=== PATIENT | female | born 1950 | race Caucasian/White ===

== ENCOUNTER 2018-05-21 12:42 | Inpatient (IN) ==
[2018-05-21] MEDS ORDERED: ONDANSETRON 4 MG/2 ML VIAL IV PRN (13:07)
[2018-05-21] MEDS ORDERED: DEXTROSE 50% 25 GM/50 ML SYRINGE IV PRN (13:07)
[2018-05-21] MEDS ORDERED: MAGNESIUM HYDROXIDE SUSP 30 ML UDCUP PO PRN (13:07)
[2018-05-21] MEDS ORDERED: GLUCAGON 1 MG VIAL IM PRN (13:07)
[2018-05-21] MEDS ORDERED: MORPHINE 4 MG/1 ML VIAL IV PRN (13:07)
[2018-05-21] MEDS ORDERED: ACETAMINOPHEN 325 MG TABLET PO PRN (13:07)
[2018-05-21] MEDS ORDERED: NITROGLYCERIN 2% OINT 1 INCH/GM PACK TOP SCH (13:30)
[2018-05-21] MEDS ORDERED: ASPIRIN EC 325 MG TABLET PO SCH (13:30)
[2018-05-21 14:14] LABS: Basophils # 0.1 10*3/uL (0.0-0.2); Basophils % 0.6 % (0.0-0.8); Eosinophils # 0.2 10*3/uL (0.0-0.87); Eosinophils % 2.3 % (0.00-10.9); Hematocrit 38.6 VOL% (35.7-47.0); Hemoglobin 11.9 GM/DL (12.0-16.0); Immature Granulocytes % 0.4 %; Immature Granulocytes Absolute 0.04 #; Lymphocytes # 2.4 10*3/uL (1.4-4.0); Lymphocytes % 25.4 % (21.3-54.2); Mean Corpuscular HGB Conc 30.8 GM/DL (32-36); Mean Corpuscular Hemoglobin 29 PG (27-34); Mean Corpuscular Volume 95.3 FL (87-102); Mean Platelet Volume 10.4 FL (9.6-12.0); Monocytes # 0.5 10*3/uL (0.11-0.8); Monocytes % 5.7 % (1.7-12.7); Neutrophils # 6.2 10*3/uL (1.4-7.4); Neutrophils % 65.6 % (38.7-73.9); Platelet Count 359 T/CUMM (130-400); Red Blood Count 4.05 MC/CUMM (3.8-5.5); Red Cell Distribution Width 12.5 % (9.3-17.3); White Blood Count 9.5 T/CUMM (4-12)
[2018-05-21 14:38] LABS: Alanine Aminotransferase 25 U/L (13-56); Albumin 3.7 G/DL (3.4-5.0); Alkaline Phosphatase 100 U/L (45-117); Aspartate Amino Transferase 11 U/L (0-37); Bilirubin,Total < 0.39 MG/DL (0.2-1.0); Blood Urea Nitrogen 31 MG/DL (7-18); Calcium 9.5 MG/DL (8.5-10.1); Glucose 169 MG/DL (74-106); Osmolality,Calculated 283.8 MOS/KG (273-304); Potassium 4.5 MMOL/L (3.5-5.1); Sodium 137 MMOL/L (136-145); Total Protein 8.3 G/DL (6.4-8.3)
[2018-05-21] MEDS ORDERED: ENOXAPARIN 100 MG/ML SYRINGE SUBCUT ONE (15:33)
[2018-05-21] MEDS ORDERED: MAGNESIUM SULF RIDER 2 GM in PREMIX 1 EACH IV PRN (15:40)
[2018-05-21] MEDS ORDERED: POTASSIUM CHLORIDE RIDER 10 MEQ in PREMIX 1 EACH IV PRN (15:40)
[2018-05-21] MEDS: SODIUM CHLORIDE 0.9% 1,000 ML IV SCH (15:51)
[2018-05-21] MEDS: PANTOPRAZOLE 40 MG TABLET PO SCH (16:06)
[2018-05-21] MEDS: LISINOPRIL 20 MG TABLET PO SCH ×2 (16:07→21:37)
[2018-05-21] MEDS: METOPROLOL TARTRATE 50 MG TABLET PO SCH ×2 (16:12→21:36)
[2018-05-21] MEDS: ASPIRIN EC 81 MG TABLET PO SCH (17:38)
[2018-05-21 17:40] LABS: Troponin I 0.299 NG/ML (0.00-0.045)
[2018-05-21] MEDS: INSULIN REGULAR 100 UNIT/ML SUBCUT SCH ×2 (17:44→22:21)
[2018-05-21 18:00] LABS: Apearance,Urine CLEAR (Clear); Bilirubin,Urine Negative (Negative); Blood, Urine Negative (Negative); Glucose,Urine (UA) Negative (Negative); Ketones,Urine Negative (Negative); Nitrite,Urine Negative (Negative); Protein,Urine Negative; RBC,Urine <1 /HPF (0-4); Urine Color Straw (Yellow); Urine Specific Gravity 1.006 (1.001-1.035); Urine Urobilinogen < 2.0 EU/DL (0.2-1.0); WBC,Urine 1 /HPF (0-6)
[2018-05-21] MEDS ORDERED: ENOXAPARIN 40 MG/0.4 ML SYRINGE SUBCUT SCH (21:00)
[2018-05-21] MEDS: ROSUVASTATIN 20 MG TABLET PO SCH (21:36)
[2018-05-21] MEDS: DOCUSATE SODIUM 100 MG CAPSULE PO SCH (21:36)
[2018-05-21] MEDS: NITROGLYCERIN 2% OINT 1 INCH/GM PACK TOP SCH (22:34)
[2018-05-21 23:26] LABS: Troponin I 0.293 NG/ML (0.00-0.045)
[2018-05-22] MEDS ORDERED: ENOXAPARIN 100 MG/ML SYRINGE SUBCUT ONE (03:30)
[2018-05-22 04:58] LABS: Basophils # 0.1 10*3/uL (0.0-0.2); Basophils % 0.9 % (0.0-0.8); Eosinophils # 0.3 10*3/uL (0.0-0.87); Eosinophils % 4.4 % (0.00-10.9); Hemoglobin 10.8 GM/DL (12.0-16.0); Immature Granulocytes % 0.3 %; Immature Granulocytes Absolute 0.02 #; Lymphocytes # 2.8 10*3/uL (1.4-4.0); Lymphocytes % 39.8 % (21.3-54.2); Mean Corpuscular HGB Conc 31.8 GM/DL (32-36); Mean Corpuscular Hemoglobin 30 PG (27-34); Mean Corpuscular Volume 93.2 FL (87-102); Mean Platelet Volume 10.7 FL (9.6-12.0); Monocytes # 0.5 10*3/uL (0.11-0.8); Monocytes % 7.1 % (1.7-12.7); Neutrophils # 3.3 10*3/uL (1.4-7.4); Neutrophils % 47.5 % (38.7-73.9); Platelet Count 276 T/CUMM (130-400); Red Blood Count 3.65 MC/CUMM (3.8-5.5); Red Cell Distribution Width 12.4 % (9.3-17.3)
[2018-05-22 05:14] LABS: Calcium 8.9 MG/DL (8.5-10.1); Osmolality,Calculated 292.1 MOS/KG (273-304); Potassium 4.7 MMOL/L (3.5-5.1)
[2018-05-22 05:17] LABS: Calcium 8.8 MG/DL (8.5-10.1); Osmolality,Calculated 292.1 MOS/KG (273-304); Potassium 4.7 MMOL/L (3.5-5.1); Risk Ratio 8.15; VLDL CHOLESTEROL 85.8 MG/DL
[2018-05-22] MEDS: SODIUM CHLORIDE 0.9% 1,000 ML IV SCH (06:38)
[2018-05-22] MEDS: LISINOPRIL 20 MG TABLET PO SCH ×2 (08:39→22:08)
[2018-05-22] MEDS: METOPROLOL TARTRATE 50 MG TABLET PO SCH ×2 (08:39→22:07)
[2018-05-22] MEDS: INSULIN REGULAR 100 UNIT/ML SUBCUT SCH ×4 (08:40→22:32)
[2018-05-22] MEDS: PANTOPRAZOLE 40 MG TABLET PO SCH (08:40)
[2018-05-22] MEDS: NITROGLYCERIN 2% OINT 1 INCH/GM PACK TOP SCH ×2 (08:40→22:15)
[2018-05-22] MEDS: GLIMEPIRIDE 2 MG TABLET PO SCH (08:40)
[2018-05-22] MEDS: ASPIRIN EC 81 MG TABLET PO SCH (08:40)
[2018-05-22] MEDS: DOCUSATE SODIUM 100 MG CAPSULE PO SCH ×2 (10:02→22:12)
[2018-05-22] MEDS ORDERED: HEPARIN/NACL 0.9% 2 UNITS/ML 1,000 ML IV ONE (11:32)
[2018-05-22] MEDS ORDERED: LIDOCAINE 1%/EPI INJ 20 ML VIAL ONE (11:32)
[2018-05-22] MEDS ORDERED: diphenhydrAMINE CAP 25 MG CAPSULE PO ONE (12:00)
[2018-05-22] MEDS ORDERED: DIAZEPAM 5 MG TABLET PO ONE (12:00)
[2018-05-22] MEDS ORDERED: fentaNYL 100 MCG/2 ML VIAL ONE (12:18)
[2018-05-22] MEDS ORDERED: MIDAZOLAM 2 MG/2 ML VIAL ONE (12:18)
[2018-05-22] MEDS ORDERED: SODIUM CHLORIDE 0.9% 1,000 ML IV SCH (16:30)
[2018-05-22] MEDS: CHLORHEXIDINE 4% SOLN 118 ML BOTTLE TOP SCH (20:22)
[2018-05-22] MEDS ORDERED: INSULIN GLARGINE 100 UNIT/ML SUBCUT SCH (21:30)
[2018-05-22] MEDS: ROSUVASTATIN 20 MG TABLET PO SCH (22:08)
[2018-05-22] MEDS: FENOFIBRATE 160 MG TABLET PO SCH (22:08)
[2018-05-22] MEDS: CHLORHEXIDINE 0.12% ORAL RINSE 60 ML BOTTLE SWISH/SPIT SCH (22:32)
[2018-05-23] MEDS ORDERED: CEFUROXIME INJ 1,500 MG in SODIUM CHLORIDE 0.9% 100 ML IV ONE (00:01)
[2018-05-23 04:53] LABS: Basophils # 0.1 10*3/uL (0.0-0.2); Basophils % 0.7 % (0.0-0.8); Eosinophils # 0.2 10*3/uL (0.0-0.87); Eosinophils % 3.3 % (0.00-10.9); Hematocrit 32.4 VOL% (35.7-47.0); Hemoglobin 10.2 GM/DL (12.0-16.0); Immature Granulocytes % 0.6 %; Immature Granulocytes Absolute 0.04 #; Lymphocytes # 1.7 10*3/uL (1.4-4.0); Mean Corpuscular HGB Conc 31.5 GM/DL (32-36); Mean Corpuscular Hemoglobin 29 PG (27-34); Mean Corpuscular Volume 93.1 FL (87-102); Mean Platelet Volume 10.5 FL (9.6-12.0); Monocytes # 0.5 10*3/uL (0.11-0.8); Monocytes % 6.9 % (1.7-12.7); Neutrophils # 4.4 10*3/uL (1.4-7.4); Neutrophils % 63.5 % (38.7-73.9); Platelet Count 274 T/CUMM (130-400); Red Blood Count 3.48 MC/CUMM (3.8-5.5); Red Cell Distribution Width 12.4 % (9.3-17.3)
[2018-05-23 04:59] LABS: Calcium 8.8 MG/DL (8.5-10.1); Osmolality,Calculated 289.4 MOS/KG (273-304); Potassium 4.5 MMOL/L (3.5-5.1)
[2018-05-23] MEDS ORDERED: VANCOMYCIN INJ 1,000 MG in SODIUM CHLORIDE 0.9% 250 ML IV ONE (05:00)
[2018-05-23] MEDS ORDERED: VANCOMYCIN 1,000 MG VIAL ONE (05:02)
[2018-05-23] MEDS ORDERED: TISSUE ADHESIVE 1 EACH APPLICATOR TOP ONE (05:02)
[2018-05-23] MEDS ORDERED: PAPAVERINE 60 MG/2 ML VIAL ONE (05:02)
[2018-05-23] MEDS: CHLORHEXIDINE 4% SOLN 118 ML BOTTLE TOP SCH (05:19)
[2018-05-23] MEDS ORDERED: LORazepam 1 MG TABLET PO ONE (06:00)
[2018-05-23] MEDS: LISINOPRIL 20 MG TABLET PO SCH (06:15)
[2018-05-23] MEDS: METOPROLOL TARTRATE 50 MG TABLET PO SCH (06:15)
[2018-05-23] MEDS: INSULIN REGULAR 100 UNIT/ML SUBCUT SCH (06:37)
[2018-05-23 07:31] LABS: ABG Base Excess -4.2 MMOL/L (-2.5-2.5); ABG HCO3 20.9 MMOL/L (20-26); ABG Oxygen Saturation 99.3 % (95-100); ABG PCO2 45.4 MM HG (35-48); ABG PH 7.298 (7.35-7.45); ABG TCO2 20.5 MMOL/L (23-27); Glucose Heart Surgery 220 MG/DL (74-106); Hematocrit Heart Surgery 30.3 PERCENT (37-47); Hemoglobin Heart Surgery 9.8 G/DL (12.0-16.0); Ionized Calcium Arterial 1.22 MMOL/L (1.21-1.46); PCO2 Patient Temp Arterial 45.4 MMHG; PH Patient Temp Arterial 7.298; Patient Temperature 37 CELCIUS; Potassium Heart/CVR 4.5 MMOL/L (3.5-5.1); Sodium Heart/CVR 136 MMOL/L (135-145)
[2018-05-23 07:36] LABS: Apearance,Urine CLEAR (Clear); Bilirubin,Urine Negative (Negative); Blood, Urine Negative (Negative); Glucose,Urine (UA) Negative (Negative); Ketones,Urine Negative (Negative); Nitrite,Urine Negative (Negative); Protein,Urine Negative; Urine Color Yellow (Yellow); Urine Specific Gravity 1.016 (1.001-1.035); Urine Urobilinogen < 2.0 EU/DL (0.2-1.0); WBC,Urine <1 /HPF (0-6)
[2018-05-23 09:12] LABS: Hematocrit Heart Surgery 19.5 PERCENT (37-47); PCO2 Patient Temp Venous 36.6 MM HG; PH Patient Temp Venous 7.394; PO2 Patient Temp Venous 35.9 MM HG; VBG Base Excess -2.1 MEQ/L (0-4); VBG HCO3 22.4 MEQ/L (24-28); VBG Oxygen Saturation 73.6 %; VBG PCO2 40.3 MMHG (41-51); VBG PH 7.365; VBG PO2 41.2 MMHG (17-40)
[2018-05-23 09:13] LABS: Hemoglobin Heart Surgery 6.2 G/DL (12.0-16.0)
[2018-05-23 09:45] LABS: Hematocrit Heart Surgery 20.4 PERCENT (37-47); Hemoglobin Heart Surgery 6.5 G/DL (12.0-16.0); PCO2 Patient Temp Venous 38.8 MM HG; PH Patient Temp Venous 7.419; PO2 Patient Temp Venous 39.5 MM HG; Potassium Heart/CVR 5.9 MMOL/L (3.5-5.1); VBG Base Excess 0.7 MEQ/L (0-4); VBG HCO3 24.8 MEQ/L (24-28); VBG PCO2 38.8 MMHG (41-51); VBG PH 7.419; VBG PO2 39.5 MMHG (17-40)
[2018-05-23] MEDS ORDERED: THROMBIN TOPICAL (RECOMBINANT) 5,000 UNIT VIAL TOP ONE (10:04)
[2018-05-23 10:09] LABS: ABG Base Excess -2.3 MMOL/L (-2.5-2.5); ABG HCO3 22.5 MMOL/L (20-26); ABG Oxygen Saturation 99.5 % (95-100); ABG PCO2 35.7 MM HG (35-48); ABG PH 7.399 (7.35-7.45); ABG TCO2 20.4 MMOL/L (23-27); Glucose Heart Surgery 347 MG/DL (74-106); Hematocrit Heart Surgery 26.8 PERCENT (37-47); Hemoglobin Heart Surgery 8.6 G/DL (12.0-16.0); Ionized Calcium Arterial 1.39 MMOL/L (1.21-1.46); PCO2 Patient Temp Arterial 35.7 MMHG; PH Patient Temp Arterial 7.399; Patient Temperature 37 CELCIUS; Potassium Heart/CVR 4.9 MMOL/L (3.5-5.1); Sodium Heart/CVR 132 MMOL/L (135-145)
[2018-05-23] MEDS ORDERED: MANNITOL 100 GM/500 ML BAG IV ONE (10:10)
[2018-05-23] MEDS ORDERED: DEXTROSE 5% KCL 20 MEQ 20 MEQ/1,000 ML BAG IV ONE (10:10)
[2018-05-23] MEDS ORDERED: PROTAMINE SULFATE 250 MG/25 ML VIAL IV ONE (10:11)
[2018-05-23] MEDS ORDERED: SODIUM BICARBONATE 50 MEQ/50 ML VIAL IV ONE (10:11)
[2018-05-23] MEDS ORDERED: PROTAMINE SULFATE 50 MG/5 ML VIAL IV ONE (10:11)
[2018-05-23] MEDS ORDERED: methylPREDNISolone SOD SUC 1,000 MG/8 ML VIAL ONE (10:11)
[2018-05-23] MEDS ORDERED: HEPARIN 10,000 UNIT/10 ML VIAL ONE (10:11)
[2018-05-23] MEDS ORDERED: FUROSEMIDE 20 MG/2 ML VIAL ONE (10:11)
[2018-05-23] MEDS ORDERED: ALBUMIN 25% 25 GM/100 ML VIAL IV ONE (10:11)
[2018-05-23] MEDS ORDERED: MAGNESIUM SULFATE 10 GM/20 ML VIAL IV ONE (10:11)
[2018-05-23] MEDS ORDERED: SODIUM CHLORIDE 0.9% 250 ML IV PRN (11:06)
[2018-05-23] MEDS ORDERED: MIDAZOLAM 2 MG/2 ML VIAL IV PRN (11:06)
[2018-05-23] MEDS ORDERED: ACETAMINOPHEN 650 MG SUPP RECTAL PRN (11:06)
[2018-05-23] MEDS ORDERED: DEXTROSE 50% 25 GM/50 ML SYRINGE IV PRN ×2 (11:06)
[2018-05-23] MEDS ORDERED: POTASSIUM CHLORIDE RIDER 10 MEQ in PREMIX 1 EACH IV PRN (11:06)
[2018-05-23] MEDS ORDERED: CALCIUM CHLORIDE 1,000 MG/10 ML SYRINGE IV PRN (11:06)
[2018-05-23] MEDS ORDERED: CHLORHEXIDINE 4% SOLN 118 ML BOTTLE TOP PRN (11:06)
[2018-05-23] MEDS ORDERED: MAGNESIUM SULF RIDER 4 GM in PREMIX 1 EACH IV PRN (11:06)
[2018-05-23] MEDS ORDERED: CALCIUM CHLORIDE 1,000 MG/10 ML VIAL IV ONE (11:11)
[2018-05-23] MEDS ORDERED: PHENYLEPHRINE DRIP 20 MG/250 ML PREMIX IV ONE (11:12)
[2018-05-23] MEDS ORDERED: SUFentanil 250 MCG/5 ML AMP ONE ×2 (11:12)
[2018-05-23] MEDS ORDERED: SEVOFLURANE 1 UNIT/15 MINUTE INH ONE (11:12)
[2018-05-23] MEDS ORDERED: ePHEDrine 50 MG/ML AMP ONE (11:13)
[2018-05-23] MEDS ORDERED: VECURONIUM 10 MG VIAL IV ONE (11:13)
[2018-05-23] MEDS ORDERED: MIDAZOLAM 10 MG/2 ML VIAL ONE (11:13)
[2018-05-23] MEDS ORDERED: ETOMIDATE 40 MG/20 ML VIAL IV ONE (11:13)
[2018-05-23] MEDS ORDERED: NITROGLYCERIN DRIP 50 MG/250 ML BOTTLE IV ONE (11:14)
[2018-05-23] MEDS ORDERED: SODIUM CHLORIDE 0.9% 1,000 ML IV ONE (11:14)
[2018-05-23] MEDS ORDERED: LACTATED RINGERS 1,000 ML IV ONE (11:14)
[2018-05-23] MEDS ORDERED: SODIUM CHLORIDE 0.9% 100 ML IV ONE (11:14)
[2018-05-23] MEDS ORDERED: HEPARIN/NACL 0.9% 2 UNITS/ML 500 ML IV ONE (11:18)
[2018-05-23 11:33] LABS: Basophils % 0.4 % (0.0-0.8); Eosinophils # 0.1 10*3/uL (0.0-0.87); Eosinophils % 0.7 % (0.00-10.9); Hematocrit 28.6 VOL% (35.7-47.0); Hemoglobin 9.3 GM/DL (12.0-16.0); Immature Granulocytes % 0.5 %; Immature Granulocytes Absolute 0.05 #; Lymphocytes # 0.9 10*3/uL (1.4-4.0); Lymphocytes % 8.8 % (21.3-54.2); Mean Corpuscular HGB Conc 32.5 GM/DL (32-36); Mean Corpuscular Hemoglobin 30 PG (27-34); Mean Corpuscular Volume 90.8 FL (87-102); Mean Platelet Volume 10.4 FL (9.6-12.0); Monocytes # 0.5 10*3/uL (0.11-0.8); Neutrophils # 8.5 10*3/uL (1.4-7.4); Neutrophils % 84.6 % (38.7-73.9); Platelet Count 225 T/CUMM (130-400); Red Blood Count 3.15 MC/CUMM (3.8-5.5); Red Cell Distribution Width 12.8 % (9.3-17.3)
[2018-05-23 11:34] LABS: ABG HCO3 22.7 MMOL/L (20-26); ABG PCO2 36.9 MM HG (35-48); ABG PH 7.393 (7.35-7.45); ABG TCO2 20.6 MMOL/L (23-27); Glucose Heart Surgery 323 MG/DL (74-106); Hematocrit Heart Surgery 29.7 PERCENT (37-47); Hemoglobin Heart Surgery 9.6 G/DL (12.0-16.0); Potassium Heart/CVR 4.2 MMOL/L (3.5-5.1)
[2018-05-23 11:42] LABS: PT Patient Result 10.9 SECS; Partial Thromboplastin Time 21.5 SECS (0-40)
[2018-05-23] MEDS: SODIUM CHLORIDE 0.45% 1,000 ML IV SCH ×2 (11:49)
[2018-05-23] MEDS: INSULIN REGULAR DRIP 100 ML IV SCH (11:51)
[2018-05-23 11:54] LABS: Calcium 11.1 MG/DL (8.5-10.1); Osmolality,Calculated 291.7 MOS/KG (273-304); Potassium 4.3 MMOL/L (3.5-5.1)
[2018-05-23] MEDS ORDERED: ASPIRIN 325 MG TABLET PO ONE (12:12)
[2018-05-23] MEDS: ALBUMIN 5% 12.5 GM in PREMIX 1 EACH IV PRN ×2 (12:12→13:53)
[2018-05-23] MEDS: MORPHINE 10 MG/1 ML VIAL IV PRN (13:05)
[2018-05-23] MEDS ORDERED: METOPROLOL TARTRATE 5 MG/5 ML VIAL IV ONE ×2 (13:07→13:10)
[2018-05-23] MEDS: INSULIN REGULAR 100 UNIT/ML IV PRN ×2 (13:37→15:33)
[2018-05-23] MEDS: MORPHINE 4 MG/1 ML VIAL IV PRN ×3 (15:16→23:59)
[2018-05-23] MEDS ORDERED: LACTATED RINGERS 500 ML IV ONE ×2 (15:35→16:42)
[2018-05-23 17:20] LABS: ABG Base Excess -3.3 MMOL/L (-2.5-2.5); ABG HCO3 21.7 MMOL/L (20-26); ABG Oxygen Saturation 96.6 % (95-100); ABG PCO2 45.3 MM HG (35-48); ABG PH 7.312 (7.35-7.45); ABG PO2 95.5 MM HG (80-95); ABG TCO2 21.4 MMOL/L (23-27); Glucose Heart Surgery 139 MG/DL (74-106); Hematocrit Heart Surgery 27.2 PERCENT (37-47); Hemoglobin Heart Surgery 8.8 G/DL (12.0-16.0); Potassium Heart/CVR 3.4 MMOL/L (3.5-5.1)
[2018-05-23] MEDS: ONDANSETRON 4 MG/2 ML VIAL IV PRN (18:57)
[2018-05-23] MEDS: POTASSIUM CHLORIDE RIDER 20 MEQ in PREMIX 1 EACH IV PRN ×2 (18:58→19:19)
[2018-05-23] MEDS ORDERED: PHENYLEPHRINE DRIP 40 MG/250 ML PREMIX IV PRN (19:16)
[2018-05-23] MEDS ORDERED: PHENYLEPHRINE DRIP 40 MG/250 ML PREMIX IV ONE (19:18)
[2018-05-23 21:31] LABS: ABG Base Excess -2.6 MMOL/L (-2.5-2.5); ABG HCO3 22.3 MMOL/L (20-26); ABG Oxygen Saturation 97.9 % (95-100); ABG PH 7.346 (7.35-7.45); ABG TCO2 21.2 MMOL/L (23-27); Glucose Heart Surgery 103 MG/DL (74-106); Hematocrit Heart Surgery 28.4 PERCENT (37-47); Hemoglobin Heart Surgery 9.2 G/DL (12.0-16.0); Potassium Heart/CVR 4.4 MMOL/L (3.5-5.1)
[2018-05-23] MEDS: CHLORHEXIDINE 0.12% ORAL RINSE 60 ML BOTTLE SWISH/SPIT SCH (21:50)
[2018-05-24] MEDS: VANCOMYCIN INJ 1,000 MG in SODIUM CHLORIDE 0.9% 250 ML IV SCH ×2 (00:14→11:59)
[2018-05-24] MEDS: MORPHINE 10 MG/1 ML VIAL IV PRN ×5 (02:03→20:30)
[2018-05-24] MEDS: SODIUM CHLORIDE 0.45% 1,000 ML IV SCH ×2 (02:10→08:27)
[2018-05-24] MEDS: INSULIN REGULAR DRIP 100 ML IV SCH (04:00)
[2018-05-24 04:03] LABS: Basophils % 0.1 % (0.0-0.8); Hematocrit 26.2 VOL% (35.7-47.0); Hemoglobin 8.4 GM/DL (12.0-16.0); Immature Granulocytes % 0.8 %; Lymphocytes # 1.1 10*3/uL (1.4-4.0); Lymphocytes % 4.5 % (21.3-54.2); Mean Corpuscular HGB Conc 32.1 GM/DL (32-36); Mean Corpuscular Hemoglobin 30 PG (27-34); Mean Corpuscular Volume 92.9 FL (87-102); Mean Platelet Volume 10.9 FL (9.6-12.0); Monocytes # 1.6 10*3/uL (0.11-0.8); Monocytes % 6.7 % (1.7-12.7); Neutrophils # 21.1 10*3/uL (1.4-7.4); Neutrophils % 87.9 % (38.7-73.9); Platelet Count 313 T/CUMM (130-400); Red Blood Count 2.82 MC/CUMM (3.8-5.5); Red Cell Distribution Width 13.2 % (9.3-17.3)
[2018-05-24 04:33] LABS: Band Neutrophils 2 % (0-10); Calcium 8.9 MG/DL (8.5-10.1); Lymphocytes 5 % (20-55); Platelet Estimate Normal; Potassium 4.5 MMOL/L (3.5-5.1); Segmented Neutrophils 88 % (50-85); Total Cells Counted 100
[2018-05-24] MEDS: MORPHINE 4 MG/1 ML VIAL IV PRN (06:25)
[2018-05-24] MEDS: PANTOPRAZOLE 40 MG VIAL IV SCH (09:52)
[2018-05-24] MEDS: FUROSEMIDE 40 MG TABLET PO SCH (09:55)
[2018-05-24] MEDS: ASPIRIN EC 325 MG TABLET PO SCH (09:56)
[2018-05-24] MEDS: CHLORHEXIDINE 0.12% ORAL RINSE 60 ML BOTTLE SWISH/SPIT SCH ×2 (09:59→20:07)
[2018-05-24] MEDS ORDERED: FUROSEMIDE 40 MG/4 ML VIAL IV ONE (10:23)
[2018-05-24] MEDS ORDERED: SODIUM CHLORIDE 0.9% 1,000 ML IV PRN (10:27)
[2018-05-24] MEDS ORDERED: DEXTROSE 50% 25 GM/50 ML SYRINGE IV PRN (10:54)
[2018-05-24] MEDS ORDERED: GLUCAGON 1 MG VIAL IM PRN (10:54)
[2018-05-24] MEDS: ONDANSETRON 4 MG/2 ML VIAL IV PRN (11:30)
[2018-05-24] MEDS: DULoxetine 30 MG CAPSULE PO SCH (12:20)
[2018-05-24] MEDS: CLOPIDOGREL 75 MG TABLET PO SCH (12:20)
[2018-05-24] MEDS: INSULIN REGULAR 100 UNIT/ML SUBCUT SCH ×2 (12:21→18:52)
[2018-05-24] MEDS: CETIRIZINE 10 MG TABLET PO SCH (20:06)
[2018-05-24] MEDS: ATORVASTATIN 40 MG TABLET PO SCH (20:06)
[2018-05-25] MEDS: VANCOMYCIN INJ 1,000 MG in SODIUM CHLORIDE 0.9% 250 ML IV SCH ×2 (00:05→11:59)
[2018-05-25] MEDS: MORPHINE 10 MG/1 ML VIAL IV PRN (00:05)
[2018-05-25] MEDS: INSULIN REGULAR 100 UNIT/ML SUBCUT SCH ×5 (02:26→17:23)
[2018-05-25 05:01] LABS: Basophils % 0.1 % (0.0-0.8); Hematocrit 26.9 VOL% (35.7-47.0); Hemoglobin 8.4 GM/DL (12.0-16.0); Immature Granulocytes % 0.8 %; Immature Granulocytes Absolute 0.12 #; Lymphocytes % 6.4 % (21.3-54.2); Mean Corpuscular HGB Conc 31.2 GM/DL (32-36); Mean Corpuscular Hemoglobin 29 PG (27-34); Mean Corpuscular Volume 93.4 FL (87-102); Mean Platelet Volume 11.1 FL (9.6-12.0); Monocytes # 1.3 10*3/uL (0.11-0.8); Monocytes % 8.5 % (1.7-12.7); Neutrophils # 12.6 10*3/uL (1.4-7.4); Neutrophils % 84.2 % (38.7-73.9); Platelet Count 175 T/CUMM (130-400); Red Blood Count 2.88 MC/CUMM (3.8-5.5); Red Cell Distribution Width 13.9 % (9.3-17.3); White Blood Count 14.9 T/CUMM (4-12)
[2018-05-25 05:12] LABS: Calcium 8.3 MG/DL (8.5-10.1); Osmolality,Calculated 292.7 MOS/KG (273-304); Potassium 4.8 MMOL/L (3.5-5.1)
[2018-05-25] MEDS: MAGNESIUM SULF RIDER 2 GM in PREMIX 1 EACH IV PRN ×2 (06:48→08:31)
[2018-05-25] MEDS ORDERED: AMIODARONE INJ 150 MG in DEXTROSE 5% 100 ML IV ONE ×4 (07:00→15:37)
[2018-05-25] MEDS ORDERED: AMIODARONE 150 MG/3 ML VIAL ONE ×2 (07:05→14:24)
[2018-05-25] MEDS ORDERED: AMIODARONE 450 MG/9 ML VIAL IV ONE (07:05)
[2018-05-25] MEDS ORDERED: AMIODARONE INJ 450 MG in DEXTROSE 5% 241 ML IV SCH ×2 (07:30→16:00)
[2018-05-25] MEDS: PANTOPRAZOLE 40 MG TABLET PO SCH (07:39)
[2018-05-25] MEDS: FENOFIBRATE 160 MG TABLET PO SCH (07:39)
[2018-05-25] MEDS: LISINOPRIL 20 MG TABLET PO SCH (07:39)
[2018-05-25] MEDS: ASPIRIN EC 81 MG TABLET PO SCH (07:40)
[2018-05-25] MEDS: DOCUSATE SODIUM 100 MG CAPSULE PO SCH (07:40)
[2018-05-25] MEDS: GLIMEPIRIDE 2 MG TABLET PO SCH (07:40)
[2018-05-25] MEDS: CHLORHEXIDINE 4% SOLN 118 ML BOTTLE TOP SCH (07:40)
[2018-05-25] MEDS: NITROGLYCERIN 2% OINT 1 INCH/GM PACK TOP SCH (07:40)
[2018-05-25] MEDS: CHLORHEXIDINE 0.12% ORAL RINSE 60 ML BOTTLE SWISH/SPIT SCH ×3 (07:40→21:36)
[2018-05-25] MEDS: METOPROLOL TARTRATE 50 MG TABLET PO SCH (07:40)
[2018-05-25] MEDS: FERROUS SULFATE 325 MG TABLET PO SCH (08:27)
[2018-05-25] MEDS: CLOPIDOGREL 75 MG TABLET PO SCH (08:27)
[2018-05-25] MEDS: ASPIRIN EC 325 MG TABLET PO SCH (08:27)
[2018-05-25] MEDS: MULTIVITAMIN (CENTRUM) TABLET PO SCH (08:27)
[2018-05-25] MEDS: MONTELUKAST 10 MG TABLET PO SCH (08:27)
[2018-05-25] MEDS: LACTOBACILLUS ACIDOPHILUS/BULGARICUS CAPLET PO SCH (08:27)
[2018-05-25] MEDS: FUROSEMIDE 40 MG TABLET PO SCH (08:27)
[2018-05-25] MEDS: DULoxetine 30 MG CAPSULE PO SCH (08:27)
[2018-05-25] MEDS: MORPHINE 4 MG/1 ML VIAL IV PRN ×2 (08:27→14:20)
[2018-05-25] MEDS: PANTOPRAZOLE 40 MG VIAL IV SCH (08:28)
[2018-05-25] MEDS ORDERED: METOPROLOL SUCCINATE XL 25 MG TABLET PO SCH (09:00)
[2018-05-25] MEDS: CARVEDILOL 3.125 MG TABLET PO SCH ×2 (09:07→21:36)
[2018-05-25] MEDS: ONDANSETRON 4 MG/2 ML VIAL IV PRN (14:20)
[2018-05-25] MEDS: AMIODARONE INJ 450 MG in DEXTROSE 5% 241 ML IV SCH (15:29)
[2018-05-25] MEDS: ATORVASTATIN 40 MG TABLET PO SCH (21:36)
[2018-05-25] MEDS: CETIRIZINE 10 MG TABLET PO SCH (21:36)
[2018-05-26] MEDS: INSULIN REGULAR 100 UNIT/ML SUBCUT SCH ×4 (01:30→18:27)
[2018-05-26 05:29] LABS: Basophils % 0.1 % (0.0-0.8); Eosinophils % 0.1 % (0.00-10.9); Hematocrit 26.2 VOL% (35.7-47.0); Hemoglobin 8.4 GM/DL (12.0-16.0); Immature Granulocytes % 0.9 %; Immature Granulocytes Absolute 0.11 #; Lymphocytes % 8.3 % (21.3-54.2); Mean Corpuscular HGB Conc 32.1 GM/DL (32-36); Mean Corpuscular Hemoglobin 30 PG (27-34); Mean Corpuscular Volume 92.6 FL (87-102); Mean Platelet Volume 11.4 FL (9.6-12.0); Monocytes # 0.8 10*3/uL (0.11-0.8); Monocytes % 6.9 % (1.7-12.7); Neutrophils # 10.3 10*3/uL (1.4-7.4); Neutrophils % 83.7 % (38.7-73.9); Platelet Count 179 T/CUMM (130-400); Red Blood Count 2.83 MC/CUMM (3.8-5.5); Red Cell Distribution Width 13.2 % (9.3-17.3); White Blood Count 12.3 T/CUMM (4-12)
[2018-05-26 05:39] LABS: Calcium 8.1 MG/DL (8.5-10.1); Osmolality,Calculated 289.1 MOS/KG (273-304)
[2018-05-26 06:05] LABS: Hypochromasia 1+; Platelet Estimate Normal
[2018-05-26] MEDS: AMIODARONE INJ 450 MG in DEXTROSE 5% 241 ML IV SCH (06:18)
[2018-05-26] MEDS ORDERED: METOPROLOL TARTRATE 5 MG/5 ML VIAL IV ONE ×2 (07:34→07:35)
[2018-05-26] MEDS ORDERED: FUROSEMIDE 40 MG/4 ML VIAL IV ONE (08:01)
[2018-05-26] MEDS ORDERED: METOPROLOL SUCCINATE XL 50 MG TABLET PO SCH (08:02)
[2018-05-26] MEDS ORDERED: ENOXAPARIN 40 MG/0.4 ML SYRINGE SUBCUT SCH (08:30)
[2018-05-26] MEDS: PANTOPRAZOLE 40 MG VIAL IV SCH (08:46)
[2018-05-26] MEDS: MULTIVITAMIN (CENTRUM) TABLET PO SCH (08:54)
[2018-05-26] MEDS: DULoxetine 30 MG CAPSULE PO SCH (08:54)
[2018-05-26] MEDS: LACTOBACILLUS ACIDOPHILUS/BULGARICUS CAPLET PO SCH (08:54)
[2018-05-26] MEDS: CLOPIDOGREL 75 MG TABLET PO SCH (08:55)
[2018-05-26] MEDS: FERROUS SULFATE 325 MG TABLET PO SCH ×2 (08:55→22:29)
[2018-05-26] MEDS: MONTELUKAST 10 MG TABLET PO SCH (08:55)
[2018-05-26] MEDS: FUROSEMIDE 40 MG TABLET PO SCH (08:55)
[2018-05-26] MEDS: ASPIRIN EC 325 MG TABLET PO SCH (08:55)
[2018-05-26] MEDS: CHLORHEXIDINE 0.12% ORAL RINSE 60 ML BOTTLE SWISH/SPIT SCH ×2 (08:55→22:34)
[2018-05-26] MEDS: CARVEDILOL 3.125 MG TABLET PO SCH (09:35)
[2018-05-26] MEDS: AMIODARONE 200 MG TABLET PO SCH ×2 (11:27→22:29)
[2018-05-26] MEDS: GLIMEPIRIDE 2 MG TABLET PO SCH (15:00)
[2018-05-26] MEDS: CETIRIZINE 10 MG TABLET PO SCH (22:29)
[2018-05-26] MEDS: METOPROLOL SUCCINATE XL 25 MG TABLET PO SCH (22:34)
[2018-05-26] MEDS: ATORVASTATIN 40 MG TABLET PO SCH (22:34)
[2018-05-26] MEDS: INSULIN GLARGINE 100 UNIT/ML SUBCUT SCH (22:34)
[2018-05-27] MEDS: MORPHINE 4 MG/1 ML VIAL IV PRN ×2 (00:52→22:19)
[2018-05-27] MEDS: INSULIN REGULAR 100 UNIT/ML SUBCUT SCH ×4 (01:32→17:29)
[2018-05-27 04:55] LABS: Basophils % 0.2 % (0.0-0.8); Eosinophils # 0.1 10*3/uL (0.0-0.87); Eosinophils % 0.6 % (0.00-10.9); Hematocrit 27.3 VOL% (35.7-47.0); Hemoglobin 8.9 GM/DL (12.0-16.0); Immature Granulocytes % 0.8 %; Lymphocytes # 1.4 10*3/uL (1.4-4.0); Lymphocytes % 10.8 % (21.3-54.2); Mean Corpuscular HGB Conc 32.6 GM/DL (32-36); Mean Corpuscular Hemoglobin 30 PG (27-34); Mean Corpuscular Volume 90.7 FL (87-102); Mean Platelet Volume 11.2 FL (9.6-12.0); Monocytes % 8.1 % (1.7-12.7); Neutrophils % 79.5 % (38.7-73.9); Platelet Count 262 T/CUMM (130-400); Red Blood Count 3.01 MC/CUMM (3.8-5.5); White Blood Count 12.6 T/CUMM (4-12)
[2018-05-27 05:05] LABS: Calcium 8.3 MG/DL (8.5-10.1); Osmolality,Calculated 288.5 MOS/KG (273-304); Potassium 3.4 MMOL/L (3.5-5.1)
[2018-05-27] MEDS ORDERED: POTASSIUM CHLORIDE 20 MEQ TABLET PO ONE (07:57)
[2018-05-27] MEDS: POTASSIUM CHLORIDE RIDER 20 MEQ in PREMIX 1 EACH IV PRN ×2 (08:53→11:09)
[2018-05-27] MEDS: FUROSEMIDE 40 MG TABLET PO SCH (08:59)
[2018-05-27] MEDS: ASPIRIN EC 325 MG TABLET PO SCH (08:59)
[2018-05-27] MEDS: AMIODARONE 200 MG TABLET PO SCH ×2 (09:00→20:33)
[2018-05-27] MEDS: FERROUS SULFATE 325 MG TABLET PO SCH ×2 (09:00→20:33)
[2018-05-27] MEDS: MONTELUKAST 10 MG TABLET PO SCH (09:00)
[2018-05-27] MEDS: DULoxetine 30 MG CAPSULE PO SCH (09:00)
[2018-05-27] MEDS: METOPROLOL SUCCINATE XL 25 MG TABLET PO SCH (09:01)
[2018-05-27] MEDS: LACTOBACILLUS ACIDOPHILUS/BULGARICUS CAPLET PO SCH (09:01)
[2018-05-27] MEDS: CHLORHEXIDINE 0.12% ORAL RINSE 60 ML BOTTLE SWISH/SPIT SCH ×2 (09:01→20:34)
[2018-05-27] MEDS: MULTIVITAMIN (CENTRUM) TABLET PO SCH (09:01)
[2018-05-27] MEDS: CLOPIDOGREL 75 MG TABLET PO SCH (09:09)
[2018-05-27] MEDS: PANTOPRAZOLE 40 MG VIAL IV SCH (09:10)
[2018-05-27] MEDS: GLIMEPIRIDE 2 MG TABLET PO SCH (09:18)
[2018-05-27] MEDS ORDERED: FUROSEMIDE 40 MG/4 ML VIAL IV ONE (09:35)
[2018-05-27] MEDS: BISACODYL 5 MG TABLET PO SCH (10:57)
[2018-05-27] MEDS: DOCUSATE SODIUM 100 MG CAPSULE PO SCH ×2 (10:58→20:33)
[2018-05-27] MEDS ORDERED: METOPROLOL TARTRATE 5 MG/5 ML VIAL IV ONE (14:59)
[2018-05-27] MEDS ORDERED: DILTIAZEM 25 MG/5 ML VIAL IV ONE ×2 (15:36→15:38)
[2018-05-27] MEDS ORDERED: dilTIAZem Drip 125 MG/125 ML PREMIX IV SCH (16:00)
[2018-05-27] MEDS: ATORVASTATIN 40 MG TABLET PO SCH (20:33)
[2018-05-27] MEDS: INSULIN GLARGINE 100 UNIT/ML SUBCUT SCH (20:33)
[2018-05-27] MEDS: METOPROLOL SUCCINATE XL 50 MG TABLET PO SCH (20:33)
[2018-05-27] MEDS: CETIRIZINE 10 MG TABLET PO SCH (20:33)
[2018-05-28 05:47] LABS: Basophils % 0.3 % (0.0-0.8); Eosinophils # 0.3 10*3/uL (0.0-0.87); Eosinophils % 2.5 % (0.00-10.9); Hematocrit 30.8 VOL% (35.7-47.0); Hemoglobin 9.9 GM/DL (12.0-16.0); Immature Granulocytes % 0.8 %; Lymphocytes # 1.7 10*3/uL (1.4-4.0); Lymphocytes % 13.4 % (21.3-54.2); Mean Corpuscular HGB Conc 32.1 GM/DL (32-36); Mean Corpuscular Hemoglobin 30 PG (27-34); Mean Corpuscular Volume 92.5 FL (87-102); Mean Platelet Volume 10.5 FL (9.6-12.0); Monocytes # 1.2 10*3/uL (0.11-0.8); Monocytes % 9.7 % (1.7-12.7); Neutrophils # 9.1 10*3/uL (1.4-7.4); Neutrophils % 73.3 % (38.7-73.9); Platelet Count 308 T/CUMM (130-400); Red Blood Count 3.33 MC/CUMM (3.8-5.5); Red Cell Distribution Width 12.9 % (9.3-17.3); White Blood Count 12.4 T/CUMM (4-12)
[2018-05-28 06:00] LABS: Albumin 2.5 G/DL (3.4-5.0); Bilirubin,Total 0.5 MG/DL (0.2-1.0); Calcium 8.5 MG/DL (8.5-10.1); Osmolality,Calculated 281.8 MOS/KG (273-304); Potassium 3.6 MMOL/L (3.5-5.1); Total Protein 6.3 G/DL (6.4-8.3)
[2018-05-28] MEDS: INSULIN REGULAR 100 UNIT/ML SUBCUT SCH ×4 (06:07→18:23)
[2018-05-28] MEDS: DULoxetine 30 MG CAPSULE PO SCH (09:21)
[2018-05-28] MEDS: FUROSEMIDE 40 MG TABLET PO SCH (09:21)
[2018-05-28] MEDS: MULTIVITAMIN (CENTRUM) TABLET PO SCH (09:21)
[2018-05-28] MEDS: BISACODYL 5 MG TABLET PO SCH (09:22)
[2018-05-28] MEDS: DOCUSATE SODIUM 100 MG CAPSULE PO SCH ×2 (09:22→22:21)
[2018-05-28] MEDS: ASPIRIN EC 325 MG TABLET PO SCH (09:22)
[2018-05-28] MEDS: LACTOBACILLUS ACIDOPHILUS/BULGARICUS CAPLET PO SCH (09:22)
[2018-05-28] MEDS: METOPROLOL SUCCINATE XL 50 MG TABLET PO SCH ×2 (09:22→22:15)
[2018-05-28] MEDS: AMIODARONE 200 MG TABLET PO SCH ×2 (09:22→22:15)
[2018-05-28] MEDS: FERROUS SULFATE 325 MG TABLET PO SCH ×2 (09:23→22:15)
[2018-05-28] MEDS: DILTIAZEM 30 MG TABLET PO SCH ×3 (09:23→22:15)
[2018-05-28] MEDS: APIXABAN 5 MG TABLET PO SCH ×2 (09:25→22:15)
[2018-05-28] MEDS: POTASSIUM CHLORIDE 20 MEQ TABLET PO PRN ×2 (09:26→12:36)
[2018-05-28] MEDS: PANTOPRAZOLE 40 MG VIAL IV SCH (09:29)
[2018-05-28] MEDS: CHLORHEXIDINE 0.12% ORAL RINSE 60 ML BOTTLE SWISH/SPIT SCH ×2 (09:29→22:15)
[2018-05-28] MEDS: GLIMEPIRIDE 2 MG TABLET PO SCH (09:32)
[2018-05-28] MEDS: MONTELUKAST 10 MG TABLET PO SCH (09:32)
[2018-05-28] MEDS: CLOPIDOGREL 75 MG TABLET PO SCH (09:57)
[2018-05-28] MEDS: INSULIN GLARGINE 100 UNIT/ML SUBCUT SCH (22:15)
[2018-05-28] MEDS: ATORVASTATIN 40 MG TABLET PO SCH (22:15)
[2018-05-28] MEDS: CETIRIZINE 10 MG TABLET PO SCH (22:24)
[2018-05-29] MEDS: INSULIN REGULAR 100 UNIT/ML SUBCUT SCH ×3 (00:51→13:40)
[2018-05-29 05:04] LABS: Basophils # 0.1 10*3/uL (0.0-0.2); Basophils % 0.5 % (0.0-0.8); Eosinophils # 0.3 10*3/uL (0.0-0.87); Eosinophils % 2.7 % (0.00-10.9); Hematocrit 31.1 VOL% (35.7-47.0); Hemoglobin 10.1 GM/DL (12.0-16.0); Immature Granulocytes % 0.7 %; Immature Granulocytes Absolute 0.08 #; Lymphocytes % 16.8 % (21.3-54.2); Mean Corpuscular HGB Conc 32.5 GM/DL (32-36); Mean Corpuscular Hemoglobin 30 PG (27-34); Mean Corpuscular Volume 91.5 FL (87-102); Mean Platelet Volume 10.7 FL (9.6-12.0); Monocytes # 1.2 10*3/uL (0.11-0.8); Monocytes % 9.6 % (1.7-12.7); Neutrophils # 8.4 10*3/uL (1.4-7.4); Neutrophils % 69.7 % (38.7-73.9); Platelet Count 331 T/CUMM (130-400)
[2018-05-29 05:19] LABS: Calcium 8.8 MG/DL (8.5-10.1); Osmolality,Calculated 282.7 MOS/KG (273-304); Potassium 4.3 MMOL/L (3.5-5.1)
[2018-05-29] MEDS: APIXABAN 5 MG TABLET PO SCH (08:21)
[2018-05-29] MEDS: PANTOPRAZOLE 40 MG VIAL IV SCH (08:21)
[2018-05-29] MEDS: BISACODYL 5 MG TABLET PO SCH (08:22)
[2018-05-29] MEDS: FUROSEMIDE 40 MG TABLET PO SCH (08:22)
[2018-05-29] MEDS: DOCUSATE SODIUM 100 MG CAPSULE PO SCH (08:23)
[2018-05-29] MEDS: FERROUS SULFATE 325 MG TABLET PO SCH (08:23)
[2018-05-29] MEDS: METOPROLOL SUCCINATE XL 50 MG TABLET PO SCH (08:23)
[2018-05-29] MEDS: DULoxetine 30 MG CAPSULE PO SCH (08:23)
[2018-05-29] MEDS: AMIODARONE 200 MG TABLET PO SCH (08:23)
[2018-05-29] MEDS: LACTOBACILLUS ACIDOPHILUS/BULGARICUS CAPLET PO SCH (08:24)
[2018-05-29] MEDS: DILTIAZEM 30 MG TABLET PO SCH (08:24)
[2018-05-29] MEDS: GLIMEPIRIDE 2 MG TABLET PO SCH (08:24)
[2018-05-29] MEDS: ASPIRIN EC 325 MG TABLET PO SCH (08:25)
[2018-05-29] MEDS: MONTELUKAST 10 MG TABLET PO SCH (08:25)
[2018-05-29] MEDS: CHLORHEXIDINE 0.12% ORAL RINSE 60 ML BOTTLE SWISH/SPIT SCH (08:25)
[2018-05-29] MEDS ORDERED: AMIODARONE 200 MG TABLET PO SCH (09:00)
[2018-05-29] MEDS ORDERED: DILTIAZEM 60 MG TABLET PO SCH (09:00)
[2018-05-29] MEDS: MULTIVITAMIN (CENTRUM) TABLET PO SCH (09:11)
[2018-05-29 12:23] VITALS: BP 110/63
== END 2018-05-29 14:50 | disposition swing bed (61) | DRG 234 ==
LOC: N.TELEN 13:33 → N.CVR 05-23 09:57 → N.ICU 05-24 12:40 → N.TELES 05-25 13:02
PROVIDERS: ADMIT Internal Medicine; ATTEND Internal Medicine
PROC: CLCCHCL (ICD-10-PCS; 2018-05-22 13:15)